=== PATIENT | female | born 1990 | race Caucasian/White ===

== ENCOUNTER 2017-04-02 14:32 | Emergency (ER) | payer MEDICAID, OTHER ==
[~2017-04-02] VITALS: Ht 167.6 cm; Wt 102.0 kg
[~2017-04-02 14:32] MED LIST: CLIN1CAP5 PO; TRAM50 PO
[2017-04-02 14:36] VITALS: BP 128/95; PULSE 105; RESP 20; TEMP 97.8; O2SAT 97
--- NOTE | 2017-04-02 15:54 | PD ---
HPI Chief Complaint: Musculoskeletal Complaint Time Seen by Provider: 15:39 Travel History International Travel<30 days: No Contact w/Intl Traveler<30days: No Traveled to known affect area: No History of Present Illness HPI Patient comes to the emergency department complaining of right ankle pain began shortly prior to arrival. Patient states that she was rushing to get back to her car when she jumped coming down rolling her right ankle. Patient describes pain as throbbing aching pain over the lateral aspect of the right ankle without radiation. Pain is worse with palpation trying to stand. Patient denies any numbness or tingling. Patient denies doing anything for this prior to coming to the emergency department. Denies hitting her head or loss of consciousness. Denies . PFSH Past Medical History Medical History: Denies Significant Hx Diminished Hearing: No Immunizations Current: Yes Tetanus Vaccination: Unknown Influenza Vaccination: No ?: Not LMP: 03-20-17 : 3 Para: 2 Past Surgical History Cholecystectomy: Yes Tonsillectomy: Yes Social History Alcohol Use: No Tobacco Use: No (2-3 CIGS PER DAY) Substance Use: No Allergies-Medications (Allergen,Severity, Reaction): Coded Allergies: Sulfa (Sulfonamide Antibiotics) (Unverified Allergy, Mild, rash, edema, ) Reported Meds & Prescriptions Reported Meds & Active Scripts Active Naprosyn (Naproxen) 500 Mg Tab 500 Mg PO Q12HR PRN Review of Systems Except as stated in HPI: all other systems reviewed are Neg Physical Exam Narrative GENERAL: Well-developed, overly nourished, in no acute distress, and non-ill appearing. SKIN: Focused skin assessment warm and dry. HEAD: Atraumatic. Normocephalic. EYES: Pupils equal and round. EOMI. No scleral icterus. No injection or drainage. ENT: No nasal bleeding or discharge. Mucous membranes pink and moist. NECK: Trachea midline. Supple. No nuclear rigidity. CARDIOVASCULAR: Dorsal pulses 2+, intact, equal bilaterally. Capillary refill less than 2 seconds. RESPIRATORY: No accessory muscle use. No respiratory distress. MUSCULOSKELETAL: No obvious deformities. No clubbing. No cyanosis. No edema. Decreased range of motion right ankle secondary to pain. Ankle: Neagative anterior draw and Raymond test. Negative Priscila's sign. No laxity noted with passive inversion and eversion of BL ankles. Negative squeeze test. Pulses equal BL distal to injury. Capillary refill less than 2 seconds distal to injury and equal BL. Sensation equal BL 1st web space. FROM of toes distal to injury and equal BL. NV intact distal to injury and equal BL. Dorsal pulses equal BL. Soft tissue swelling over lateral aspect of right ankle. Patient reports point tenderness over this. No crepitus. No effusion. NEUROLOGICAL: Awake and alert. No obvious cranial nerve deficits. Motor grossly within normal limits. Normal speech. PSYCHIATRIC: Appropriate mood and affect; insight and judgment normal. Data Data Last Documented VS Vital Signs Date Time Temp Pulse Resp B/P (MAP) Pulse Ox O2 Delivery O2 Flow Rate FiO2 04/02/17 14:36 97.8 105 20 128/95 (106) 97 Orders Orders Ankle, Complete ([id number]) (04/02/17 ) Ibuprofen (Motrin) (04/02/17 16:00) Acetamin-Hydrocod 325-5 Mg (Gardner 5-325 (04/02/17 16:00) Splint Or Brace Apply/Monitor (04/02/17 16:03) Brace Ankle Stirrup (04/02/17 ) Ed Discharge Order (04/02/17 16:31) Crutches (04/02/17 16:31) MDM Medical Decision Making Medical Screen Exam Complete: Yes Emergency Medical Condition: Yes Interpretation(s) Last Impressions Ankle X-Ray 04/02/17 0000 Signed Impressions: Service Date/Time: Sunday, April 02, 2017 15:40 - CONCLUSION: 1. Mild lateral soft tissue swelling. 2. No fracture seen. Nikita Sol MD Differential Diagnosis Fracture, sprain, contusion, dislocation Narrative Course There is no clinical evidence for fracture. There is no clinical evidence to suspect bony injury by exam. Radiographic examination revealed no fracture seen at this time. No obvious ligamental injury or internal derangement is noted at this time. The distal extremity appears neurovascularly intact, without evidence of neurovascular injury nor compartment syndrome. Tendon exam also was intact. The effected limb was splinted. The patient was discharged on pain medication along with sprain and splint care instructions and given warnings for vascular compromise. The patient is to follow up with Orthopedics. The patient agrees with plan. Patient in no obvious distress upon re-evaluation. All pertinent Radiology result(s) discussed with patient/family. Patient was asked if they wanted to speak to my attending, which the patient did not wish to do at this time. Any questions/concerns in reference to patient diagnosis/condition discussed and clarified prior to patient's discharge. Reinforced sheer importance of close follow up with patient's primary physician or primary care clinic and/or orthopedic. Instructed patient to return to ED immediately, if symptoms return/ worsen. Patient showed understanding of above instructions. Further instructions and recommendations were detailed in discharge paperwork. Patient ambulated without difficulty out of ED at discharge with crutches. Diagnosis Primary Impression: Right ankle sprain Qualified Codes: S93.401A - Sprain of unspecified ligament of right ankle, initial encounter Referrals: Richard Beard MD [facility] Patient Instructions: Ankle Sprain (ED), Ankle Sprain Exercises (GEN), Ankle Stirrup Splint (ED), Crutch Instructions (ED), General Instructions Additional Instructions: Follow-up with your primary care physician and/or orthopedic in 2-3 days for reevaluation. Take all medication as prescribed. Apply ice to affected area 20 min/h as needed for pain or swelling. Use [id number] Tylenol as needed for additional pain control. Follow instructions on the packaging. Wear ankle stirrup splint for comfort until reevaluated. Use crutches as needed for additional support. Return to the emergency department if symptoms get worse. Med/Other Pt SpecificInfo: Prescription(s) given Scripts Naproxen (Naprosyn) 500 Mg Tab 500 MG PO Q12HR Y for PAIN SCALE 1 TO 10, #14 TAB 0 Refills Prov: Irineo Ovalles MD 04/02/17 Disposition: 01 DISCHARGE HOME Condition: Stable Eduard Cowart Apr 02, 2017 15:54
[2017-04-02] MEDS ORDERED: ACETAMINOPHEN/HYDROcodone 325 MG/5 MG TAB PO ONE (16:00)
[2017-04-02] MEDS ORDERED: IBUPROFEN 800 MG TAB PO ONE (16:00)
--- NOTE | 2017-04-02 16:19 | RADRPT ---
EXAM DATE/TIME: 04/02/2017 15:40 [facility] COMPARISON: No previous studies available for comparison. INDICATIONS : Right ankle pain and lateral swelling. Patient fell and twisted the right ankle today. MEDICAL HISTORY : None. SURGICAL HISTORY : None. ENCOUNTER: Initial ACUITY: 1 day PAIN SCORE: 8/10 LOCATION: Right lateral ankle. FINDINGS: 3 view examination is performed. There is mild lateral soft tissue swelling. No radiopaque foreign bodies. The osseous structures are normal alignment. No evidence of fracture. No radiopaque foreig n body. Ankle mortise is intact. CONCLUSION: 1. Mild lateral soft tissue swelling. 2. No fracture seen. Nikita Sol MD on April 02, 2017 at 16:14 Board Certified Radiologist. This report was verified electronically.
[2017-04-02] MEDS ORDERED: NAPR500 PO (16:35)
== END 2017-04-02 16:45 | disposition home or self-care (01) ==
LOC: PHEFT 14:32
DX: S93.401A Sprain of unspecified ligament of right ankle, initial encounter (principal); X50.1XXA Overexertion from prolonged static or awkward postures, initial encounter; Y93.39 Activity, other involving climbing, rappelling and jumping off
CPT/HCPCS: 73610; 99283; E0113; L1906